=== PATIENT | female | born 1950 | race Caucasian/White ===

== ENCOUNTER → 2023-05-25 12:23 | Outpatient (REF) | payer MEDICARE, SELFPAY ==
[2023-05-25 16:36] LABS: Folate > 20.0 ng/ml (2.76-20); Vitamin B12 818 pg/ml (239-931)
== END ==
LOC: HWLAB 12:23
PROVIDERS: ATTENDING PHYSICIAN Nurse Practitioner Adult Health
DX: R71.8 Other abnormality of red blood cells (principal); Z79.899 Other long term (current) drug therapy
CPT/HCPCS: 36415; 82607; 82746

== ENCOUNTER 2023-05-26 18:37 | Inpatient (IN) | payer MEDICARE, SELFPAY ==
[2023-05-26 15:15] VITALS: BMI 28.1
[2023-05-26 15:16] VITALS: BP 149/81
[2023-05-26 15:23] VITALS: BP 149/81
[2023-05-26 15:39] LABS: % Basophils 0.4 % (0-2); % Eosinophils 0.9 % (0-6); % Immature Granulocytes 1.6 % (0-0.5); % Lymphocytes 21.2 % (20.5-51.1); % Monocytes 6.9 % (1.7-9.3); Absolute Eosinophils 0.1 10^3/uL (0-0.7); Absolute Immature Granulocytes 0.1 10^3/uL (0-0.05); Absolute Lymphocytes 1.5 10^3/uL (1.2-3.4); Absolute Monocytes 0.5 10^3/uL (0.1-0.6); Absolute Neutrophils 4.8 10^3/uL (1.4-6.5); Mean Corp Hgb Conc. 34.2 g/dL (33.0-37.0); Mean Corpuscular Volume 96.4 fL (81.0-99.0); Mean Platelet Volume 9.9 fL (7.4-10.4); Nucleated Red Blood Cells % 0 %; Platelet Count 229 10^3/uL (130-400); Red Blood Cell Count 3.94 10^6/uL (4.20-5.40); Red Cell Dist. Width 12.1 % (11.5-14.5)
[2023-05-26 15:55] LABS: ALT (SGPT) 28 U/L (0-35); AST (SGOT) 33 U/L (14-36); Albumin 4.5 g/dl (3.5-5.0); Alkaline Phosphatase 93 U/L (38-126); Blood Urea Nitrogen 25 mg/dl (7-17); Calcium 9.6 mg/dl (8.4-10.2); Carbon Dioxide 27 mmol/L (22-30); Chloride 108 mmol/L (98-107); Estimated Creatinine Clearance 68 ml/min; Glucose 114 mg/dl (70-99); Potassium 4.1 mmol/L (3.5-5.1); Sodium 138 mmol/L (135-145); Total Bilirubin 0.7 mg/dl (0.2-1.3); Total Protein 6.7 g/dl (6.3-8.2); eGFR > 60.00
[2023-05-26 16:00] VITALS: BP 156/71
--- NOTE | 2023-05-26 16:14 | ED.MUSCINJ ---
HPI-Injury
General
Chief Complaint: Fall
Source: patient and spouse
Exam Limitations: none
Time Seen by Provider: 05/26/23 15:36
Nursing documentation reviewed up to this point in time: agreed with
Travel History
Have you had any contact with someone who has COVID-19?: No
Do you have any symptoms of coronavirus? Fever > 100 degrees, chills, cough, shortness of breath, sore throat, loss of taste or smell, muscle aches, or headache?: No
History of Present Illness-Injury
Initial Injury comments:
73-year-old female with history of CAD HTN, HLD stepped out of her front door to get her mail, missed 1 step fell on the concrete onto her left side. She was unable to get up due to left hip pain. EMS was called and she presents via EMS with a
shortened and externally rotated left lower extremity, hip pain and pain in the lateral aspect of her left foot. She is not anticoagulated. She denies hitting her head or any other injury. She states laying still her pain is 3/10.
Past History
Past History
ED Past Medical History: CAD, HTN and Hypercholesterolemia
ED Past Surgical History: Gynecological (Hysterectomy, oophorectomy)
Social History
Tobacco: Non-smoker
Alcohol: None
Drug: None
Personal:
Living: with family
Review of Systems
Review of Systems
Allergies reviewed?: Yes
All Other Systems: ROS reviewed and negative except as documented in HPI and ROS
Constitutional: Denies fever
EENT: Reports other (Left eye deviates laterally)
Respiratory: Denies trouble breathing
Cardiac: Denies chest pain
ABD/GI: Denies abdominal pain or nausea
: Denies dysuria or difficulty voiding
Musculoskeletal: Reports other (Pain left hip and left foot)
Skin: Reports no symptoms
Neurological: Reports no symptoms
Phy Exam
Physical Exam
Physical Exam:
GENERAL: No acute distress. A&Ox3.
CONSTITUTIONAL: Afebrile.
EYES: PERRL, conjunctivae normal, lateral left eye deviation
Neck: Supple
ENMT: moist mucus membranes, Pharynx nl
RESPIRATORY: Regular respirations, nonlabored, lungs clear.
CARDIOVASCULAR: Regular rate and rhythm, no murmurs, no rubs.
GI: Soft, nontender, normal BS
MUSCULOSKELETAL: Left hip pain, left leg shortened and externally rotated. Mild tenderness lateral aspect left foot. Moves toes well. Well perfused.
SKIN: Warm, dry, pink
PSYCH: Normal mood and affect. Well kept, interactive and appropriate
NEUROLOGIC: Awake, alert and oriented. No focal neurological deficits
Injury Course
Orders/Labs/Results
Orders:
Orders
05/26/23 Dinner
Regular
At Your Request: Full Participation
05/26/23 15:19
CR Foot - Left Min 3 Views Urgent
Comment:
Reason For Exam: fall
CR Hip - LT w/wo Pel 2-3 Vw* Urgent
Comment:
Reason For Exam: fall
Include a pelvis x-ray?: Yes
05/26/23 15:21
Complete Blood Count/With Diff Urgent
Comprehensive Metabolic Panel Urgent
05/26/23 16:13
HYDROmorphone [Dilaudid] 1 mg IV NOW STA
Ondansetron Injectable [Zofran] 4 mg IV NOW STA
05/26/23 17:17
ORTHOPEDIC CONSULT Urgent
Consulting Provider: Virginia Carpio
Was physician already notified: Yes
Reason for consult: L hip fracture.
05/26/23 17:28
Electrocardiogram (*1) Urgent
Reason for Study: PreOp
EKG- Treatment ONCE
05/26/23 17:58
Admit/Transfer Patient As Directed
Co-Sign Provider:
Level of Care: Inpatient admission
Assign to:: Medical/Surgical
Physician / Group: Quang Pike
Diagnosis: Left hip fracture
Reason for Hospitalization: Left hip fracture
Expected length of stay greater than two midnights?: Yes
ELOS- Estimated Length of Stay in days: 3
I certify the patient meets the requirements for IP care: Yes
05/26/23 18:01
Code Status As Directed
Resuscitation Status: Full Code
05/26/23 19:35
Atorvastatin [Lipitor] 10 mg PO QPM
Magnesium Hydroxide [Milk of Magnesia] 30 ml PO DAILYPRN PRN
Morphine Sulfate 1 mg IV Q2HPRN PRN
Morphine Sulfate 2 mg IV Q2HPRN PRN
Oxycodone [Roxicodone] 5 mg PO Q4HPRN PRN
Tamsulosin [Flomax] 0.4 mg PO DAILYPRN PRN
05/26/23 19:35
Activity As Directed
Activity Level: Bedrest
Bladder Scan As Directed
Follow Bladder Retention/Intermittent Cath Algorithm?: Yes
PRN if no void in __ hours: 6
Comment: if not voiding 6 hrs upon arrival to floor, bladder scan & follow algorithm
Intake/ Output As Directed
Frequency: Per unit guidelines
Pneumatic Compression Sleeves As Directed
Type: Knee high
Straight Cath As Directed
Frequency: Per Retention Algorithm
Additional Instructions: straight cath as needed per acute urinary retention algorithm for 24 hrs
Additional Instructions: for bladder scan greater than 400 mL
Vital Signs As Directed
Frequency: Per unit guidelines
DX Deep Vein Thrombosis Video Routine
05/26/23 20:00
Acetaminophen [Tylenol] 650 mg PO Q4HWA
Calcium Carbonate/Vitamin D3 [Oscal 500 + D] 500 mg PO BID
Docusate Sodium [Colace] 100 mg PO BID
Lisinopril [Zestril] 20 mg PO BID
Metoprolol Xl [Toprol Xl] 100 mg PO BID
Sennosides [Senokot] 17.2 mg PO BID
05/27/23 Breakfast
NPO
Allow oral meds: Yes
Allow clear liquids: 4hrs prior to procedure
Comment: may have unrestricted clear liquid up to 4 hrs prior to scheduled procedure
05/27/23 08:00
Cholecalciferol (Vitamin D3) [VITAMIN D3 (cholecalciferol)] 25 mcg PO DAILY
ISOSORBIDE MONOnitrate ER [Imdur (Extended Release)] 30 mg PO DAILY
Multivitamin [Theragran] 1 tablet PO DAILY
Abnormal Lab Results
05/26/23
15:21
RBC 3.94 L 10^6/uL
(4.20-5.40)
MCH 33.0 H pg
(27.0-31.0)
Abs Immat Gran (auto) 0.1 H 10^3/uL
(0-0.05)
Immature Gran % 1.6 H %
(0-0.5)
Chloride 108 H mmol/L
(98-107)
BUN 25 H mg/dl
(7-17)
Glucose 114 H mg/dl
(70-99)
05/26/23 15:21
05/26/23 15:21
MDM/Problems Addressed
Differential Diagnosis Includes:
Fracture left hip, dislocated left hip, fracture left foot
MDM/Problems Addressed:
73-year-old female with history of CAD HTN, HLD stepped out of her front door to get her mail, missed 1 step fell on the concrete onto her left side. She was unable to get up due to left hip pain. EMS was called and she presents via EMS with a
shortened and externally rotated left lower extremity, hip pain and pain in the lateral aspect of her left foot. She is not anticoagulated. She denies hitting her head or any other injury. She states laying still her pain is 10.
05/26/2023 1720 PM
CBC with no clinically significant abnormality
CMP: BUN 25, otherwise normal
Left hip x-ray radiology report read: IMPRESSION:
Nondisplaced intertrochanteric left hip fracture.
Mild bilateral hip osteoarthritis, right greater than left.
Moderate fecal material throughout the colon.
Left foot xray: neg for fracture
Hospitalist and Orthopedic Dr. Carpio notified of admission
Orthopedic consult in
*Critical Care Note
Total Time (30-74mins, 75-104mins- exclusive of procedures): Not Applicable
ED Attending Note
-
Portions of this chart may have been created with voice recognition software.� Occasional wrong word or��sound alike� substitutions may have occurred due to the inherent limitations of voice recognition software.
Discharge Plan
Departure
Patient Disposition: Admit
Date of Disposition: 05/26/23
Time of Disposition: 17:18
Admit to: Med/Surg
Presentation/result/management discussed w/ accepting MD/DO: Hospitalist
Condition: Fair
Discharge Problem:
Closed fracture of left hip, Fall from slip, trip, or stumble
Interventions
Interventions:
*Risk Screen - Suicide Last Done: 05/26/23 15:17
*General Assessment Last Done: 05/26/23 15:16
*Neglect/Abuse Screening Last Done: 05/26/23 15:17
ED- Fall Risk Assessment Last Done: 05/26/23 15:18
*ED COVID-19 Vaccine History Last Done: 05/26/23 15:16
*Nursing Disposition Last Done: 05/26/23 19:45
ED-Musculoskeletal Assessment Last Done: 05/26/23 15:18
ED- Neurological Assessment Last Done: 05/26/23 15:17
Discharge Date and Time
Discharge Date/Time: 05/26/23 19:46
[2023-05-26] MEDS: DILAUDID 1 MG IV (16:19)
[2023-05-26] MEDS: ZOFRAN 4 MG IV (16:19)
--- NOTE | 2023-05-26 17:58 | HPS.HSE ---
Family Physician
-
Family Physician: Marlen Lujan
Chief Complaint
-
Mechanical fall, left hip pain
History of Present Illness
Patient is a 73-year-old female with past medical history of coronary disease, essential hypertension, hyperlipidemia, history of venous thrombosis came to ER after having mechanical fall. Patient was apparently getting out of house and ended up
forgetting a step and fell on the left side. Patient had small abrasion on right hand. Significant pain and ambulatory dysfunction afterward causing patient to present to ER. In ER patient comfortable after getting pain medication. Hip x-ray
showing left hip trochanteric fracture. Patient denies of having any associated complaints of dizziness/palpitation/diaphoresis. Patient have history of coronary artery disease and follows up with Dr. Bety Troy in [place]. Patient have
history of heart catheterization 2013 showing what patient reports to be noncritical coronary disease. Patient is on Imdur/statin for that. Patient also have history of episodic tachycardia and have Holter monitoring in past, not currently taking
metoprolol for rate control.
Patient denies of any other GI or complaints
Medical History
Past Medical History
Past Medical History: Reports Other
Additional Past Medical History:
coronary disease, essential hypertension, hyperlipidemia, history of venous thrombosis
Past Surgical History: Reports Other
Social History
Tobacco: Non-smoker
Alcohol: Occasional
Drug: None
Personal:
Living: With Family
Family History
Family History: Not pertinent
Allergies / Home Medications
Allergies reflects when Allergies were last updated in [employer].
Home Medications with original date entered in [employer]
Allergy/Medication List:
Allergies
Allergy/AdvReac Type Severity Reaction Status Date / Time
Penicillins Allergy Unknown Verified 06/12/22 14:25
Sulfa (Sulfonamide Allergy Unknown Verified 06/12/22 14:25
Antibiotics)
Home Medications
atorvastatin 10 mg tablet 10 mg PO QPM 05/26/23
calcium citrate 315 mg calcium-vitamin D3 6.25 mcg (250 unit) tablet 1 tab PO BID 05/26/23
cholecalciferol (vitamin D3) 25 mcg (1,000 unit) tablet 25 mcg PO DAILY 05/26/23
isosorbide mononitrate 30 mg tablet,extended release 24 hr 30 mg PO DAILY 05/26/23
lisinopril 20 mg tablet 20 mg PO BID 05/26/23
metoprolol succinate 100 mg tablet,extended release 24 hr 100 mg PO BID 05/26/23
therapeutic multivitamin 1 tab PO DAILY 05/26/23
Review of Systems
-
A 12 point ROS was completed and negative except as noted: Yes
Physical Exam
Vital Signs
Vital Signs
Temp Pulse Resp BP Pulse Ox
97.8 F 76 20 156/71 97
05/26/23 15:16 05/26/23 16:15 05/26/23 16:15 05/26/23 16:00 05/26/23 16:15
Physical Exam
General: No Apparent Distress
HEENT: Atraumatic; No Oxygen
Respiratory: Clear
Cardiac: S1/S2 and Regular Rhythm; No Murmur or Rub
GI: Soft, Non Tender, Non Distended and Normal Bowel Sounds; No Organomegaly
Rectal: Deferred by Provider
Musculoskeletal: No Clubbing, No Cyanosis and No Edema
Skin: No Rash
Neuro: Awake, Alert and Nonfocal/grossly intact
Laboratory Results
-
05/26/23 15:21
05/26/23 15:21
Laboratory Results
Total Bilirubin 0.7 mg/dl (0.2-1.3) 05/26/23 15:21
AST 33 U/L (14-36) 05/26/23 15:21
ALT 28 U/L (0-35) 05/26/23 15:21
Alkaline Phosphatase 93 U/L (38-126) 05/26/23 15:21
Data Reviewed
-
Diagnostic Radiology: Image Personally Visualized and interpreted, Discussed with Patient and Discussed with Family
Lab Data: Labs Reviewed by me, Discussed with Patient and Discussed with Family
Impression/Plan
-
1. Left hip intertrochanteric fracture
Mechanical fall
-Patient had mechanical fall causing left hip injury
-X-ray showing nondisplaced intratrochanteric hip fracture
-Patient got IV morphine in ER for pain control,
-Admit to MedSur floor
- Orthopedic surgery consulted
-Patient to be n.p.o. past midnight for surgery tomorrow
2. CAD
-[facility] in 2013 showing nonobstructive coronary artery disease -verbal report per patient
-On Imdur daily, continue with hold parameter
-Primary hand violin maker in [place] Dr. Bety Troy
3. Essential hypertension
-Continue lisinopril and Toprol-XL with holding parameters
4. Tachyarrhythmia
-Reported episodic tachyarrhythmia, patient on Toprol-XL BID
5. HLD
- maintain on statin
DVT PPX - scd
Full code
RCRI 0 with 30 day risk of ,NC or cardiac arrest is 3.9%
Patient benefit outweighs the risk and risk acceptable for surgery
Total time spent : 77 mins
I personally saw and examined the patient.
I have reviewed all diagnostic interpretations and treatment plans as written.
Time includes patient management by me, time spent at the patients bedside, time to review lab and imaging results, discussing patient care, documentation in the medical record, and time spent with the family or caregiver and discussing care plan
with RN/Consultants.
[2023-05-26 18:50] VITALS: BP 165/81; BMI 27.9
[2023-05-26 19:50] VITALS: BP 165/81
[2023-05-26] MEDS: LIPITOR 10 MG PO (20:24)
[2023-05-26] MEDS: COLACE 100 MG PO (20:25)
[2023-05-26] MEDS: TYLENOL 650 MG PO (20:25)
[2023-05-26] MEDS: SENOKOT 17.1999999999999993 MG PO (20:25)
[2023-05-26] MEDS: OSCAL 500 + D 500 MG PO (20:25)
[2023-05-26] MEDS: TOPROL XL 100 MG PO (20:26)
[2023-05-26] MEDS: ZESTRIL 20 MG PO (20:27)
[2023-05-26] MEDS: ROXICODONE 5 MG PO (20:37)
[2023-05-26 23:54] VITALS: BP 119/51
[2023-05-27] VITALS (13 sets, daily range): BP systolic 83–144; BP diastolic 40–71
[2023-05-27] MEDS: TYLENOL PO ×2 (00:49→21:39)
[2023-05-27] MEDS: TYLENOL 650 MG PO ×5 (02:51→23:36)
[2023-05-27] MEDS: ROXICODONE 5 MG PO (02:51)
--- NOTE | 2023-05-27 07:41 | W.PN.UPDATE ---
Update Note
Progress Note Update
Full orthopedic consult dictated:
Dx: Nondisplaced left hip intertrochanteric fracture
Plan: Left hip gamma nail later this afternoon with Dr. Carpio. Surgery consent and blood consent signed by patient. Surgical location marked and Ancef on-call to the operating room.
[2023-05-27] MEDS: SENOKOT 17.1999999999999993 MG PO ×2 (07:53→21:27)
[2023-05-27] MEDS: COLACE 100 MG PO ×2 (07:53→21:27)
[2023-05-27] MEDS: IMDUR (EXTENDED RELEASE) 30 MG PO (07:53)
[2023-05-27] MEDS: ZESTRIL 20 MG PO ×2 (07:54→21:39)
[2023-05-27] MEDS: OSCAL 500 + D 500 MG PO ×2 (07:54→21:36)
[2023-05-27] MEDS: VITAMIN D3 (cholecalciferol) 25 MCG PO (07:55)
[2023-05-27] MEDS: THERAGRAN 1 TABLET PO (07:55)
[2023-05-27] MEDS: TOPROL XL 100 MG PO ×2 (07:55→21:37)
--- NOTE | 2023-05-27 10:52 | W.PN.HOSP.TC ---
Today's Communication/Plan
-
foir OR today
Assessment / Plan
Assessment / Plan
1.� Left hip intertrochanteric fracture
�� � Mechanical fall
-Patient had mechanical fall causing left hip injury
-X-ray showing nondisplaced intratrochanteric hip fracture
-Patient got IV morphine in ER for pain control, continue
- Orthopedic surgery consulted
-Patient going to OR today
2. CAD
-[facility] in 2013 showing nonobstructive coronary artery disease -verbal report per patient
-On Imdur daily, continue with hold parameter
-Primary gynecologist in [place] Dr. Bety Troy
3.� Essential hypertension
-Continue lisinopril and Toprol-XL with holding parameters
4.� Tachyarrhythmia
-Reported episodic tachyarrhythmia, patient on Toprol-XL BID
5. HLD
- maintain on statin
DVT PPX - scd
Full code
RCRI 0 with 30 day risk of ,VT or cardiac arrest is 3.9%
Patient benefit outweighs the risk and risk acceptable for surgery
Anticipated Discharge: 24 - 48 hours
Subjective/Interval History
-
Date of Service: May 27, 2023
no issues overnight
Objective Data
-
Vital Signs:
Vital Signs
Temp Pulse Resp BP Pulse Ox
98.8 F 72 18 144/69 93
05/27/23 07:55 05/27/23 07:55 05/27/23 07:55 05/27/23 07:55 05/27/23 07:55
I&O
05/26/23 05/27/23 05/28/23
06:59 06:59 06:59
Intake Total 0 / 0
Output Total 600 / 600
Balance -600 / -600
Review of Systems
-
Respiratory: Reports No Symptoms
Cardiac: Reports No Symptoms
Abdomen/GI: Reports No Symptoms
Physical Exam
-
General: Comfortable
HEENT: Negative Oxygen
Respiratory: Clear to Auscultation
Cardiac: Regular Rhythm and S1/S2; Negative Murmur or Rub
GI: Soft, Nontender and Nondistended
Musculoskeletal: No Edema
Skin: Other (left lateral hip echymosis)
Neuro: Awake, Alert, Oriented, No Motor Deficits and Nonfocal/Grossly Intact
Psych: Calm
--- NOTE | 2023-05-27 11:49 | CM ---
Chart reviewed. Spoke with pt at bedside
Pt fractured hip at home - prob sx intervention later today
Prior to hospitalization pt independent-shops, preparing meals
Lives with in [place] style home
Denies DME, past snf/HH
PCP -Leslie EDWARD
Pharm - [facility]
CM will follow for needs post-op - pending PT/OT evals
Plan - anticipate snf/hh at d/c
--- NOTE | 2023-05-27 14:57 | PN.CDI ---
CDI
- -
CDI:
Physician Documentation Request
Admit Date: 05/26/23 18:37
Dear Doctor Shahzad,
Please review the following and provide your response in the progress notes.
Clinical Indicators:
Bone Density, 05/26/2022
#10 year fracture risk:
#...Major osteoporotic fracture
#...16%
#...Hip fracture
#...5.2%
#IMPRESSION:
#OSTEOPENIA. There has been a statistically significant decrease in bone mineral density in the proximal femur since the prior examination.
ED, 05/26
#ED Past Surgical History: Gynecological (Hysterectomy, oophorectomy)
#Home Meds:
#cholecalciferol (vitamin D3) 25 mcg (1,000 unit) Tablet 25 mcg PO DAILY
#calcium citrate-vitamin D3 315 mg-6.25 mcg (250 unit) Tablet 1 tab PO BID
#Closed fracture of left hip, Fall from slip, trip, or stumble
Please clarify the following regarding the etiology of the left hip fracture:
Multifactorial, traumatic, age related osteoporosis
Traumatic fracture only
Other
Type Fracture
Age-related With current pathological fx
Drug induced (specify drug) without current pathological fx
Idiopathic
Osteoporosis of disuse
Post traumatic
Post oophorectomy osteoporosis
Use of terms such as suspected, likely, concern for, or probable (associated with a specific diagnosis that is being evaluated, monitored, or treated as if it exists) are acceptable and can be coded in the inpatient setting, when documented at the
time of discharge.
Thank you,
Kaye Borrero RN BSN CCDS
CDI Specialist
please contact via tiger text
Please use your independent medical judgment in providing your response.
--- NOTE | 2023-05-27 15:29 | PTCARENOTE ---
Patient to OR for procedure
--- NOTE | 2023-05-27 18:03 | W.PN.UPDATE ---
Update Note
Progress Note Update
Post-op Update Note:
Patient seen in PACU. Waking up from anesthesia, moving BL feet and toes. DP 2+ BL. She is s/p Left hip intramedullary nailing. DVT ppx with SCDs and ASA 325 bid x 4 weeks. She may WBAT. PT/OT. Diet ok. Will continue to follow.
Virginia Carpio DO
Orthopedic Surgery
--- NOTE | 2023-05-27 19:40 | SUR.PHASEI ---
initially sedate in pacu with lower BP - when more awake , vss, color pink, awake and alert, feels disoriented with ' loss of time' from the OR, currently oriented with minimal discomfort. dressings dry, keep sequential stocking on instead of
venous foot pumps - ice to left leg. note wandering left eye, patient says 'chronic' and has good vision. Iv fluids stopped report to 2 south and discharged - keeping O2 nasal on. Encourage deep breathing - sats good with O2.
[2023-05-27] MEDS: ASPIRIN 325 MG PO (21:28)
--- NOTE | 2023-05-27 21:29 | OR.RPT ---
Operative Report
Operative Report
Orthopedic Surgery Operative Report
Date of Surgery: 05/27/23
PREOPERATIVE DIAGNOSES:
1. Left intertrochanteric femoral neck fracture
POSTOPERATIVE DIAGNOSES:
1. Left intertrochanteric femoral neck fracture
PROCEDURE PERFORMED:
1. Left hip intramedullary nailing
SURGEON: Virginia Carpio D.O.
TERMINAL OPERATOR: None
ANESTHESIA: General
COMPLICATIONS: None
ESTIMATED BLOOD LOSS: 50 cc
DRAINS: None
SPECIMEN: None
IMPLANTS:
[employer] [place] [employer]-
[id number] Left Gamma Nail
10.5x95mm lag screw
5.0x55mm screw
INDICATION FOR SURGERY: Patient is a 73-year-old female who recently took a fall. Imaging in the hospital demonstrated a left intertrochanteric femoral neck fracture. A decision was made to proceed with left femur intramedullary nailing. All
operative and nonoperative treatment options were discussed with the patient and a decision was made to proceed with surgery. The risks, benefits, alternatives, and indications were discussed with the patient in detail. The risks include, but are
not limited to bleeding requiring transfusion, infection, need for reoperation, nerve or blood vessel damage, anesthetic risks, need for further surgery, continued pain, blood clots in the legs, heart attack, stroke, , neurovascular injury,
malunion, nonunion, continued pain, numbness, weakness. The patient understands the risks and elected to proceed. Informed consent was obtained preoperatively.
PROCEDURE IN DETAIL: The patient was identified in the preoperative holding area. The surgical site was appropriately marked. The patient was then brought to the operating room. General anesthesia was achieved. The patient was given routine
preoperative intravenous antibiotics. The patient was then appropriately positioned on the fracture table. X-rays were obtained to ensure no displacement of the intertrochanteric fracture had occurred. The patient was prepped and draped in the
usual sterile manner. A preoperative surgical time-out was taken and the procedure was initiated.
The greater trochanter was marked using fluoroscopy. An incision was made along the lateral hip proximal to the greater trochanter. A guidewire was then advanced under fluoroscopic guidance to gain an appropriate entry point at the greater
trochanter. Once the guidewire was placed, an opening reamer was used to gain entry into the femur. The guidewire was removed and a ball-tipped guidewire was inserted into the femur. The position of the guidewire was confirmed both with tactile
feel to ensure that it was within the femur and with fluoroscopy. Appropriate position of the guidewire in the distal femur was confirmed on fluoroscopy. A measurement was taken for an appropriately sized nail under fluoroscopic guidance. The
femur was then sequentially reamed. Next, a size 10 x 420 nail was inserted into the femur under fluoroscopic guidance. The ball-tipped guide wire was removed. Attention was then turned towards lag screw placement. The lag screw attachment was
placed on the jig. An incision was made at the lateral thigh to advance the lag screw attachment to the lateral femur. The lag screw guidewire was then introduced into the femoral neck under fluoroscopic guidance. Once appropriate position of the
guidewire was confirmed, a measurement was taken. The femoral neck was then drilled over top the guidewire and the appropriately sized lag screw was placed under fluoroscopic guidance. Compression was performed through the lag screw. The
set-screw of the nail was placed to lock the nail to the lag screw. The lag screw attachment and guide wire were removed. Attention was then turned towards placement of the distal interlocking screws. A distal interlocking screw was placed using
perfect-circles fluoroscopy technique. The jig was then removed and all wounds were copiously irrigated. Final x-rays were obtained. The wounds were closed in layered fashion using vicryl suture. Kevon were applied at the skin. Dressings were
applied to all incision sites. Patient tolerated the procedure well with no immediate complications. All counts were correct at the end of the surgery.
Virginia Carpio D.O.
Orthopedic Surgery
[2023-05-27] MEDS: LIPITOR PO (21:37)
[2023-05-27] MEDS: ANCEF 5 IV (23:36)
[2023-05-28] VITALS (9 sets, daily range): BP systolic 84–132; BP diastolic 45–60; PULSE 73; O2SAT 91–92
[2023-05-28] MEDS: TYLENOL 650 MG PO ×4 (04:20→21:15)
[2023-05-28 06:10] LABS: Hematocrit 31.5 % (37.0-47.0); Hemoglobin 10.5 g/dL (12.0-16.0); Mean Corp Hgb Conc. 33.3 g/dL (33.0-37.0); Mean Corpuscular Hgb 32.4 pg (27.0-31.0); Mean Corpuscular Volume 97.2 fL (81.0-99.0); Mean Platelet Volume 10.3 fL (7.4-10.4); Platelet Count 146 10^3/uL (130-400); Red Blood Cell Count 3.24 10^6/uL (4.20-5.40); Red Cell Dist. Width 12.5 % (11.5-14.5); White Blood Cell Count 5.6 10^3/uL (4.8-10.8)
[2023-05-28 06:24] LABS: Blood Urea Nitrogen 31 mg/dl (7-17); Calcium 8.6 mg/dl (8.4-10.2); Carbon Dioxide 25 mmol/L (22-30); Chloride 103 mmol/L (98-107); Estimated Creatinine Clearance 74 ml/min; Glucose 140 mg/dl (70-99); Potassium 4.1 mmol/L (3.5-5.1); Sodium 137 mmol/L (135-145); eGFR > 60.00
[2023-05-28] MEDS: TOPROL XL 100 MG PO ×2 (07:50→21:18)
[2023-05-28] MEDS: OSCAL 500 + D 500 MG PO ×2 (07:51→21:14)
[2023-05-28] MEDS: IMDUR (EXTENDED RELEASE) 30 MG PO (07:51)
[2023-05-28] MEDS: VITAMIN D3 (cholecalciferol) 25 MCG PO (07:51)
[2023-05-28] MEDS: COLACE 100 MG PO ×2 (07:52→21:14)
[2023-05-28] MEDS: ASPIRIN 325 MG PO ×2 (07:52→21:14)
[2023-05-28] MEDS: SENOKOT 17.1999999999999993 MG PO ×2 (07:52→21:14)
[2023-05-28] MEDS: THERAGRAN 1 TABLET PO (07:52)
[2023-05-28] MEDS: ZESTRIL 20 MG PO ×2 (07:53→21:18)
[2023-05-28] MEDS: ANCEF 5 IV (07:53)
[2023-05-28] MEDS: ROXICODONE 5 MG PO (08:57)
--- NOTE | 2023-05-28 09:12 | W.PN.ORTHO ---
Documented by User: Marcellus Overton PA-C 05/28/23 09:16
Today's Communication / Plan
-
Appreciate hospitalist in the medical management of this patient
Appreciate CM assistance with disposition, likely SNF
Continue WBAT LLE on walker/assistance
PT/OT
ASA 325mg BID due to Hx of unprovoked DVT
Dressing to remain 7-10 days
[place] out 2 weeks (SNF of office)
If [facility]o out at SNF outpatient Ortho in 4 weeks
Assessment
.
Distal Motor Intact: Yes
Dressing:
Clean, dry and intact. Aquacel dressing in place x 3 Left thigh
Assessment:
POD#1 Left hip Gamma nail
Overall doing/feeing well
Calf soft, nontender
Plan
.
Surgery / Date: Left Hip Gamma nail Jun 12 ([facility])
DVT Prophylaxis: Aspirin (BID)
Activity:
Out of bed. WBAT LLE on walker
PT/OT
Discharge Plan: SNF
Subjective
.
.:
Patient resting comfortably. no significant pain LLE
Vital Signs and Labs
.
Vital Signs and Labs:
Lab Results
05/28/23 05:00
05/28/23 05:00
Temp Pulse Resp BP Pulse Ox
98.4 F 78 17 137/61 92
05/28/23 07:30 05/28/23 07:53 05/28/23 07:30 05/28/23 07:53 05/28/23 07:30

Documented by User: Virginia Carpio DO 05/28/23 10:55
Today's Communication / Plan
-
Appreciate hospitalist in the medical management of this patient
Appreciate CM assistance with disposition, likely SNF
Continue WBAT LLE on walker/assistance
PT/OT
ASA 325mg BID due to Hx of unprovoked DVT
Dressing to remain 7-10 days
[place] out 2 weeks
[2023-05-28] MEDS: NSS 250 IV (11:30)
--- NOTE | 2023-05-28 12:23 | W.PN.HOSP.TC ---
Addendum entered and electronically signed by Quang Pike MD 05/28/23 15:14:
Adjust diagnosis:
Left hip intertochanteric fracture - multifactorial from mechanical trauma and osteoporosis
Acute blood loss anemia from surgical blood loss
Original Note:
Today's Communication/Plan
-
IVF bolus
will hold HTN meds if repeat orthostasis episode occurs
pt/ot and rehab placement
Assessment / Plan
Assessment / Plan
1.� Left hip intertrochanteric fracture
�� � Mechanical fall
-Patient had mechanical fall causing left hip injury
-X-ray showing nondisplaced intratrochanteric hip fracture
-s/p left intramedullary nailing by ortho service.
-PT/OT will need rehab placement
2. CAD
-[facility] in 2013 showing nonobstructive coronary artery disease -verbal report per patient
-On Imdur daily, continue with hold parameter
-Primary inside sales agent in [place] Dr. Bety Troy
3. Orthostasis
- episode while working with PT, SBP dropped to 70s
- providing IVF bolus of 250ml
- if repeat episode happens, will need to hold HTN meds
4.� Essential hypertension
-Continue lisinopril and Toprol-XL with holding parameters
5.� Tachyarrhythmia
-Reported episodic tachyarrhythmia, patient on Toprol-XL BID
5. HLD
- maintain on statin
DVT PPX - scd
Full code
Anticipated Discharge: Within 24 hours
Subjective/Interval History
-
Date of Service: May 28, 2023
denies excessive pain
had episode of orthostasis with PT
Objective Data
-
Labs:
Laboratory Results
05/28/23
05:00
WBC 5.6
Hgb 10.5 L
Hct 31.5 L
Plt Count 146 D
Sodium 137
Potassium 4.1
Chloride 103
Carbon Dioxide 25
BUN 31 H
Creatinine 0.7
Glucose 140 H
Calcium 8.6
Vital Signs:
Vital Signs
Temp Pulse Resp BP Pulse Ox
98.4 F 78 17 137/61 92
05/28/23 07:30 05/28/23 07:53 05/28/23 07:30 05/28/23 07:53 05/28/23 07:30
I&O
05/27/23 05/28/23 05/29/23
06:59 06:59 06:59
Intake Total 0 / 0 250 / 250 120 / 120
Output Total 600 / 600 350 / 350
Balance -600 / -600 250 / 250 -230 / -230
Review of Systems
-
Respiratory: Reports No Symptoms
Cardiac: Reports No Symptoms
Abdomen/GI: Reports No Symptoms
Physical Exam
-
General: Comfortable
HEENT: Oxygen
Respiratory: Clear to Auscultation
Cardiac: Regular Rhythm and S1/S2; Negative Murmur or Rub
Musculoskeletal: No Edema
Skin: Other (left lateral hip dressing in place )
Neuro: Awake, Alert, Oriented, No Motor Deficits and Nonfocal/Grossly Intact
Psych: Calm
--- NOTE | 2023-05-28 14:51 | PN.CDI ---
CDI
- -
CDI:
Physician Documentation Request
Admit Date: 05/26/23 18:37
Dear Doctor Shahzad,
Please review the following and provide your response in the progress notes.
Clinical Indicators:
2 POD#1 Left hip Gamma nail
#ESTIMATED BLOOD LOSS: 50 cc
Laboratory Tests
05/26/23 05/28/23
15:21 05:00
Hgb 13.0 10.5 L
Please clarify which of the following is the most likely condition/diagnosis evaluated, monitored and/or treated?
Acute blood loss anemia
Abnormal lab value, clinically insignificant
Other
Use of terms such as suspected, likely, concern for, or probable (associated with a specific diagnosis that is being evaluated, monitored, or treated as if it exists) are acceptable and can be coded in the inpatient setting, when documented at the
time of discharge.
Thank you,
Kaye Borrero RN BSN CCDS
CDI Specialist
please contact via tiger text
Please use your independent medical judgment in providing your response.
[2023-05-28] MEDS: TYLENOL PO (15:08)
[2023-05-28] MEDS: LIPITOR 10 MG PO (17:01)
[2023-05-29] MEDS: TYLENOL PO ×3 (00:09→16:32)
[2023-05-29] MEDS: TYLENOL 650 MG PO ×3 (03:45→20:07)
[2023-05-29 06:09] LABS: Hematocrit 30.7 % (37.0-47.0); Hemoglobin 10.3 g/dL (12.0-16.0); Mean Corp Hgb Conc. 33.6 g/dL (33.0-37.0); Mean Corpuscular Hgb 32.8 pg (27.0-31.0); Mean Corpuscular Volume 97.8 fL (81.0-99.0); Mean Platelet Volume 10.2 fL (7.4-10.4); Platelet Count 149 10^3/uL (130-400); Red Blood Cell Count 3.14 10^6/uL (4.20-5.40); Red Cell Dist. Width 12.9 % (11.5-14.5); White Blood Cell Count 6.6 10^3/uL (4.8-10.8)
[2023-05-29 06:48] LABS: Blood Urea Nitrogen 47 mg/dl (7-17); Carbon Dioxide 25 mmol/L (22-30); Chloride 106 mmol/L (98-107); Estimated Creatinine Clearance 65 ml/min; Glucose 113 mg/dl (70-99); Potassium 4.1 mmol/L (3.5-5.1); Sodium 141 mmol/L (135-145); eGFR > 60.00
[2023-05-29 07:50] VITALS: BP 121/60
[2023-05-29] MEDS: ASPIRIN 325 MG PO ×2 (09:07→20:08)
[2023-05-29] MEDS: SENOKOT 17.1999999999999993 MG PO (09:07)
[2023-05-29] MEDS: ZESTRIL 20 MG PO ×2 (09:08→20:11)
[2023-05-29] MEDS: IMDUR (EXTENDED RELEASE) 30 MG PO (09:08)
[2023-05-29] MEDS: THERAGRAN 1 TABLET PO (09:08)
[2023-05-29] MEDS: COLACE 100 MG PO (09:09)
[2023-05-29] MEDS: OSCAL 500 + D 500 MG PO ×2 (09:09→20:07)
[2023-05-29] MEDS: TOPROL XL 100 MG PO ×2 (09:09→20:11)
[2023-05-29] MEDS: VITAMIN D3 (cholecalciferol) 25 MCG PO (09:10)
[2023-05-29 09:35] VITALS: BP 137/66; PULSE 71; O2SAT 96
--- NOTE | 2023-05-29 12:18 | W.PN.HOSP.TC ---
Today's Communication/Plan
-
discharge planning
Assessment / Plan
Assessment / Plan
1.� Left hip intertrochanteric fracture
�� � Mechanical fall
-Patient had mechanical fall causing left hip injury
-X-ray showing nondisplaced intratrochanteric hip fracture
-s/p left intramedullary nailing by ortho service.
-PT/OT will need rehab placement, CM working on it
2. CAD
-[facility] in 2013 showing nonobstructive coronary artery disease -verbal report per patient
-On Imdur daily, continue with hold parameter
-Primary dish up person in [place] Dr. Bety Troy
3. Orthostasis episode
- episode while working with PT, SBP dropped to 70s on 05/28
- provided IVF bolus of 250ml
- if repeat episode happens, will need to hold HTN meds
4.� Essential hypertension
-Continue lisinopril and Toprol-XL with holding parameters
5.� Tachyarrhythmia
-Reported episodic tachyarrhythmia, patient on Toprol-XL BID
6. HLD
- maintain on statin
7. Acute blood loss anemia from sx
- Hbg stable at 10-11 range, continue monitor
DVT PPX - scd
Full code
Anticipated Discharge: Today
Subjective/Interval History
-
Date of Service: May 29, 2023
Sitting comfortably in chair
No further reported episode of orthostasis/dizziness
Objective Data
-
Labs:
Laboratory Results
05/29/23
05:34
WBC 6.6
Hgb 10.3 L
Hct 30.7 L
Plt Count 149
Sodium 141
Potassium 4.1
Chloride 106
Carbon Dioxide 25
BUN 47 H
Creatinine 0.8
Glucose 113 H
Calcium 9.0
Vital Signs:
Vital Signs
Temp Pulse Resp BP Pulse Ox
98.3 F 72 17 137/66 96
05/29/23 07:50 05/29/23 09:09 05/29/23 07:50 05/29/23 09:09 05/29/23 09:10
I&O
05/28/23 05/29/23 05/30/23
06:59 06:59 06:59
Intake Total 250 / 250 600 / 600
Output Total 350 / 350
Balance 250 / 250 250 / 250
Review of Systems
-
Respiratory: Reports No Symptoms
Cardiac: Reports No Symptoms
Abdomen/GI: Reports No Symptoms
Physical Exam
-
General: Comfortable
HEENT: Oxygen
Respiratory: Clear to Auscultation
Cardiac: Regular Rhythm and S1/S2; Negative Murmur or Rub
Musculoskeletal: No Edema
Skin: Other (left lateral hip dressing in place , no bleeding)
Neuro: Awake, Alert, Oriented, No Motor Deficits and Nonfocal/Grossly Intact
Psych: Calm
--- NOTE | 2023-05-29 12:48 | CM ---
Spoke with pt about dc recommendations changing to SNF.
Pt is agreeable. SW provided pt and Medicare.gov resource to pick facilities to begin making referrals
--- NOTE | 2023-05-29 12:51 | PTCARENOTE ---
verified with Dr. Pike is is ok to shower with our assistance. bed sheets changed.
[2023-05-29 15:08] VITALS: BP 116/65; BP 117/67; BP 121/60; PULSE 72; PULSE 77; PULSE 86; O2SAT 97
[2023-05-29 15:19] VITALS: BP 116/65; BP 117/62; BP 121/60; PULSE 75; PULSE 77; PULSE 86
[2023-05-29] MEDS: LIPITOR 10 MG PO (16:30)
[2023-05-29] MEDS: COLACE PO (20:07)
[2023-05-29] MEDS: SENOKOT PO (20:07)
[2023-05-29 23:00] VITALS: BP 122/54
[2023-05-30] MEDS: TYLENOL PO ×5 (00:03→17:50)
[2023-05-30 06:25] LABS: Hematocrit 30.7 % (37.0-47.0); Hemoglobin 10.2 g/dL (12.0-16.0); Mean Corp Hgb Conc. 33.2 g/dL (33.0-37.0); Mean Corpuscular Hgb 32.5 pg (27.0-31.0); Mean Corpuscular Volume 97.8 fL (81.0-99.0); Mean Platelet Volume 10.4 fL (7.4-10.4); Platelet Count 164 10^3/uL (130-400); Red Blood Cell Count 3.14 10^6/uL (4.20-5.40); White Blood Cell Count 5.2 10^3/uL (4.8-10.8)
[2023-05-30 06:41] LABS: Blood Urea Nitrogen 34 mg/dl (7-17); Calcium 9.1 mg/dl (8.4-10.2); Carbon Dioxide 24 mmol/L (22-30); Chloride 107 mmol/L (98-107); Estimated Creatinine Clearance 74 ml/min; Glucose 104 mg/dl (70-99); Potassium 4.2 mmol/L (3.5-5.1); Sodium 139 mmol/L (135-145); eGFR > 60.00
[2023-05-30 07:29] VITALS: BP 120/61
[2023-05-30] MEDS: ASPIRIN 325 MG PO ×2 (09:49→21:03)
[2023-05-30] MEDS: COLACE 100 MG PO ×2 (09:50→21:03)
[2023-05-30] MEDS: TOPROL XL 100 MG PO ×2 (09:50→21:07)
[2023-05-30] MEDS: SENOKOT 17.1999999999999993 MG PO ×2 (09:51→21:04)
[2023-05-30] MEDS: OSCAL 500 + D 500 MG PO ×2 (09:52→21:04)
[2023-05-30] MEDS: THERAGRAN 1 TABLET PO (09:52)
[2023-05-30] MEDS: ZESTRIL 20 MG PO ×2 (09:53→21:06)
[2023-05-30] MEDS: IMDUR (EXTENDED RELEASE) 30 MG PO (09:54)
[2023-05-30] MEDS: VITAMIN D3 (cholecalciferol) 25 MCG PO (09:54)
--- NOTE | 2023-05-30 11:24 | W.PN.HOSP.TC ---
Today's Communication/Plan
-
discharge planning for rehab
Assessment / Plan
Assessment / Plan
1.� Left hip intertrochanteric fracture
�� � Mechanical fall
-Patient had mechanical fall causing left hip injury
-X-ray showing nondisplaced intratrochanteric hip fracture
-s/p left intramedullary nailing by ortho service.
-PT/OT will need rehab placement, CM working on it
2. CAD
-[facility] in 2013 showing nonobstructive coronary artery disease -verbal report per patient
-On Imdur daily, continue with hold parameter
-Primary wind operations manager in [place] Dr. Bety Troy
3. Orthostasis episode
- episode while working with PT, SBP dropped to 70s on 05/28
- provided IVF bolus of 250ml on 05/28
- repeat ortho vitals check neg.
4.� Essential hypertension
-Continue lisinopril and Toprol-XL with holding parameters
5.� Tachyarrhythmia
-Reported episodic tachyarrhythmia, patient on Toprol-XL BID
6. HLD
- maintain on statin
7. Acute blood loss anemia from sx
- Hbg stable at 10-11 range, continue monitor
DVT PPX - scd
Full code
Anticipated Discharge: Within 24 hours
Subjective/Interval History
-
Date of Service: May 30, 2023
no complains overnight
Objective Data
-
Labs:
Laboratory Results
05/30/23
05:16
WBC 5.2
Hgb 10.2 L
Hct 30.7 L
Plt Count 164
Sodium 139
Potassium 4.2
Chloride 107
Carbon Dioxide 24
BUN 34 H
Creatinine 0.7
Glucose 104 H
Calcium 9.1
Vital Signs:
Vital Signs
Temp Pulse Resp BP Pulse Ox
98.0 F 75 17 120/61 97
05/30/23 07:29 05/30/23 09:53 05/30/23 07:29 05/30/23 09:53 05/30/23 07:29
I&O
05/29/23 05/30/23 05/31/23
06:59 06:59 06:59
Intake Total 600 / 600 900 / 900 480 / 480
Output Total 350 / 350
Balance 250 / 250 900 / 900 480 / 480
Review of Systems
-
Respiratory: Reports No Symptoms
Cardiac: Reports No Symptoms
Abdomen/GI: Reports No Symptoms
Physical Exam
-
General: Comfortable
HEENT: Oxygen
Respiratory: Clear to Auscultation
Cardiac: Regular Rhythm and S1/S2; Negative Murmur or Rub
Musculoskeletal: No Edema
Skin: Other (left lateral hip dressing in place , no bleeding)
Neuro: Awake, Alert, Oriented, No Motor Deficits and Nonfocal/Grossly Intact
Psych: Calm
[2023-05-30 11:52] VITALS: BP 142/65; BP 146/70; PULSE 86; O2SAT 95
--- NOTE | 2023-05-30 15:22 | CM ---
Resident and provided list of facilities and referrals were made in all scripts.
[2023-05-30 15:43] VITALS: BP 121/64; PULSE 77
[2023-05-30] MEDS: LIPITOR 10 MG PO (17:50)
--- NOTE | 2023-05-30 19:29 | PTCARENOTE ---
pt c/o discoloration to right pinky finger. No pain on flexion or extension. there is a small abrasion at base of finger. May have injured in fall. MM <2sec is cool. Stated I pass on to surgery so they could review in Am. night nurse informed.
[2023-05-30] MEDS: TYLENOL 650 MG PO (21:00)
[2023-05-30 23:15] VITALS: BP 114/50
[2023-05-31] MEDS: TYLENOL PO ×4 (00:58→16:12)
[2023-05-31 07:58] VITALS: BP 145/68
[2023-05-31] MEDS: IMDUR (EXTENDED RELEASE) 30 MG PO (07:59)
[2023-05-31] MEDS: VITAMIN D3 (cholecalciferol) 25 MCG PO (07:59)
[2023-05-31] MEDS: TYLENOL 650 MG PO ×3 (08:00→21:07)
[2023-05-31] MEDS: ASPIRIN 325 MG PO ×2 (08:00→21:06)
[2023-05-31] MEDS: OSCAL 500 + D 500 MG PO ×2 (08:00→21:06)
[2023-05-31] MEDS: COLACE PO (08:00)
[2023-05-31] MEDS: SENOKOT PO (08:00)
[2023-05-31] MEDS: ZESTRIL 20 MG PO ×2 (08:01→21:06)
[2023-05-31] MEDS: THERAGRAN 1 TABLET PO (08:01)
[2023-05-31] MEDS: TOPROL XL 100 MG PO ×2 (08:01→21:06)
[2023-05-31 11:47] VITALS: BP 133/70; PULSE 69; O2SAT 98
--- NOTE | 2023-05-31 13:43 | W.PN.HOSP.TC ---
Today's Communication/Plan
-
dvt ppx- Asa
pending placement
Assessment / Plan
Assessment / Plan
1.� Left hip intertrochanteric fracture
�� � Mechanical fall
-Patient had mechanical fall causing left hip injury
-X-ray showing nondisplaced intratrochanteric hip fracture
-s/p left intramedullary nailing by ortho service.
-PT/OT will need rehab placement, CM working on it
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
-Dressing to remain 7-10 days
-[facility] out 2 weeks (SNF of office)
-If leno out at [facility] outpatient Ortho in 4 weeks
2. CAD
-[facility] in 2013 showing nonobstructive coronary artery disease -verbal report per patient
-On Imdur daily, continue with hold parameter
-Primary supervisory cbp officer in [place] Dr. Bety Troy
3. Orthostasis episode
- episode while working with PT, SBP dropped to 70s on 05/28
- provided IVF bolus of 250ml on 05/28
- repeat ortho vitals check neg.
4.� Essential hypertension
-Continue lisinopril and Toprol-XL with holding parameters
5.� Tachyarrhythmia
-Reported episodic tachyarrhythmia, patient on Toprol-XL BID
6. HLD
- maintain on statin
7. Acute blood loss anemia from sx
- Hbg stable at 10-11 range, continue monitor
DVT PPX - ASA 325mg BID
Full code
DC ready, Medically Clear
Anticipated Discharge: Within 24 hours
Subjective/Interval History
-
Date of Service: May 31, 2023
No acute events overnight
Objective Data
-
Vital Signs:
Vital Signs
Temp Pulse Resp BP Pulse Ox
98.3 F 75 16 145/68 95
02/12/24 07:58 05/31/23 07:58 05/31/23 07:58 05/31/23 07:58 05/31/23 07:58
I&O
05/30/23 05/31/23 06/01/23
06:59 06:59 06:59
Intake Total 900 / 900 1200 / 1200
Balance 900 / 900 1200 / 1200
Review of Systems
-
History Source: Patient
All other systems: Not reviewed unless documented
Physical Exam
-
General: Comfortable
Respiratory: Clear to Auscultation
Cardiac: Regular Rhythm and S1/S2; Negative Murmur or Rub
Musculoskeletal: No Edema
Neuro: Awake, Alert, Oriented, No Motor Deficits and Nonfocal/Grossly Intact
Psych: Calm
Data Reviewed
-
Diagnostic Radiology: Image personally visualized and interpreted and Report Reviewed by me
Labs: Labs Reviewed by me
--- NOTE | 2023-05-31 15:09 | CM ---
Discharge plan of care: SNF. Patient has chosen and been accepted to [facility] for skilled services and rehab. Insurance authorization through [employer] has been initiated and records faxed. ID Reference # [id number], fax #
[phone], .
[2023-05-31] MEDS: LIPITOR 10 MG PO (16:54)
[2023-05-31] MEDS: SENOKOT 17.1999999999999993 MG PO (21:06)
[2023-05-31] MEDS: COLACE 100 MG PO (21:06)
[2023-05-31 23:00] VITALS: BP 145/61
[2023-06-01] MEDS: TYLENOL PO ×4 (00:51→15:07)
[2023-06-01 05:08] LABS: Hematocrit 29.2 % (37.0-47.0); Hemoglobin 9.8 g/dL (12.0-16.0); Mean Corp Hgb Conc. 33.6 g/dL (33.0-37.0); Mean Corpuscular Hgb 32.2 pg (27.0-31.0); Mean Corpuscular Volume 96.1 fL (81.0-99.0); Platelet Count 194 10^3/uL (130-400); Red Blood Cell Count 3.04 10^6/uL (4.20-5.40); Red Cell Dist. Width 12.9 % (11.5-14.5)
[2023-06-01 05:45] LABS: Blood Urea Nitrogen 31 mg/dl (7-17); Carbon Dioxide 24 mmol/L (22-30); Chloride 106 mmol/L (98-107); Estimated Creatinine Clearance 74 ml/min; Glucose 100 mg/dl (70-99); Potassium 4.1 mmol/L (3.5-5.1); Sodium 138 mmol/L (135-145); eGFR > 60.00
[2023-06-01 07:13] VITALS: BP 135/69
[2023-06-01] MEDS: TYLENOL 650 MG PO ×3 (08:09→19:30)
[2023-06-01] MEDS: VITAMIN D3 (cholecalciferol) 25 MCG PO (08:09)
[2023-06-01] MEDS: ASPIRIN 325 MG PO ×2 (08:09→19:29)
[2023-06-01] MEDS: OSCAL 500 + D 500 MG PO ×2 (08:09→19:30)
[2023-06-01] MEDS: IMDUR (EXTENDED RELEASE) 30 MG PO (08:09)
[2023-06-01] MEDS: TOPROL XL 100 MG PO ×2 (08:09→19:30)
[2023-06-01] MEDS: THERAGRAN 1 TABLET PO (08:10)
[2023-06-01] MEDS: SENOKOT PO ×3 (08:10→19:30)
[2023-06-01] MEDS: COLACE PO ×3 (08:10→19:30)
[2023-06-01] MEDS: ZESTRIL 20 MG PO ×2 (08:10→19:31)
[2023-06-01 12:00] VITALS: BP 115/58; PULSE 72; O2SAT 97
--- NOTE | 2023-06-01 13:02 | W.PN.HOSP.TC ---
Today's Communication/Plan
-
medically clear - pending dc
asa 325mg bid
Assessment / Plan
Assessment / Plan
1.� Left hip intertrochanteric fracture
�� � Mechanical fall
-Patient had mechanical fall causing left hip injury
-X-ray showing nondisplaced intratrochanteric hip fracture
-s/p left intramedullary nailing by ortho service.
-PT/OT will need rehab placement, CM working on it
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
-Dressing to remain 7-10 days
-[facility] out 2 weeks (SNF of office)
-If leno out at [facility] outpatient Ortho in 4 weeks
2. CAD
-[facility] in 2013 showing nonobstructive coronary artery disease -verbal report per patient
-On Imdur daily, continue with hold parameter
-Primary information assurance specialist in [place] Dr. Bety Troy
3. Orthostasis episode
- episode while working with PT, SBP dropped to 70s on 05/28
- provided IVF bolus of 250ml on 05/28
- repeat ortho vitals check neg.
4.� Essential hypertension
-Continue lisinopril and Toprol-XL with holding parameters
5.� Tachyarrhythmia
-Reported episodic tachyarrhythmia, patient on Toprol-XL BID
6. HLD
- maintain on statin
7. Acute blood loss anemia from sx
- Hbg stable at 10-11 range, continue monitor
DVT PPX - ASA 325mg BID
Full code
DC ready, Medically Clear
Anticipated Discharge: Within 24 hours
Subjective/Interval History
-
Date of Service: June 01, 2023
no acute events overnight
Objective Data
-
Labs:
Laboratory Results
06/01/23
03:50
WBC 5.0
Hgb 9.8 L
Hct 29.2 L
Plt Count 194
Sodium 138
Potassium 4.1
Chloride 106
Carbon Dioxide 24
BUN 31 H
Creatinine 0.7
Glucose 100 H
Calcium 9.0
Vital Signs:
Vital Signs
Temp Pulse Resp BP Pulse Ox
97.7 F 70 18 135/69 95
06/01/23 07:13 06/01/23 07:13 06/01/23 07:13 06/01/23 07:13 06/01/23 07:13
I&O
05/31/23 06/01/23 06/02/23
06:59 06:59 06:59
Intake Total 1200 / 1200 960 / 960
Balance 1200 / 1200 960 / 960
Review of Systems
-
History Source: Patient
All other systems: Not reviewed unless documented
Physical Exam
-
General: Comfortable
Respiratory: Clear to Auscultation
Cardiac: Regular Rhythm and S1/S2; Negative Murmur or Rub
Musculoskeletal: No Edema
Neuro: Awake, Alert, Oriented, No Motor Deficits and Nonfocal/Grossly Intact
Psych: Calm
Data Reviewed
-
Diagnostic Radiology: Image personally visualized and interpreted and Report Reviewed by me
Labs: Labs Reviewed by me
--- NOTE | 2023-06-01 13:30 | W.PN.ORTHO ---
Today's Communication / Plan
-
Left lower extremity weight-bear as tolerated
PT OT
ASA 325 twice daily x 4 weeks
SCDs
Keep dressing clean and dry. Okay to remove dressing 1 week postop
Follow-up in clinic in 2 weeks postop for staple removal
Patient is still awaiting placement. Case management working to place patient
Please call with any questions
Assessment
.
Dressing:
Clean, dry and intact.
Assessment:
Left intertrochanteric femur fracture status post intramedullary nailing, POD 5
Plan
.
Surgery / Date: Left Hip Gamma nail Jun 12 ([facility])
Activity:
Out of bed.
PT/OT
Subjective
.
.:
Patient seen on rounds earlier today. She resting comfortably in bedside chair. Has been ambulatory with PT. Ambulated 200 feet with walker. Reports pain has improved significantly at the left hip. No new complaints. Case management working on
placement.
Vital Signs and Labs
.
Vital Signs and Labs:
Lab Results
06/01/23 03:50
06/01/23 03:50
Temp Pulse Resp BP Pulse Ox
97.7 F 70 18 135/69 95
06/01/23 07:13 06/01/23 07:13 06/01/23 07:13 06/01/23 07:13 06/01/23 07:13
Physical Exam
-
Exam: Left lower extremity dressing CDI. Minimal tenderness of the left hip. Range of motion of left hip intact with slight discomfort. Painless range of motion of left knee and ankle. TA/EHL/GSC intact motor. Sensation intact at the left lower
extremity grossly. DP 2+.
[2023-06-01 15:17] VITALS: BP 103/61
[2023-06-01] MEDS: LIPITOR 10 MG PO (17:03)
[2023-06-01 23:00] VITALS: BP 130/72
[2023-06-02] MEDS: TYLENOL PO ×2 (00:24→11:53)
[2023-06-02] MEDS: TYLENOL 650 MG PO ×2 (03:19→08:49)
[2023-06-02 07:04] VITALS: BP 153/74
[2023-06-02] MEDS: IMDUR (EXTENDED RELEASE) 30 MG PO (08:48)
[2023-06-02] MEDS: ASPIRIN 325 MG PO (08:48)
[2023-06-02] MEDS: VITAMIN D3 (cholecalciferol) 25 MCG PO (08:48)
[2023-06-02] MEDS: TOPROL XL 100 MG PO (08:49)
[2023-06-02] MEDS: COLACE 100 MG PO (08:49)
[2023-06-02] MEDS: ZESTRIL 20 MG PO (08:49)
[2023-06-02] MEDS: SENOKOT 17.1999999999999993 MG PO (08:49)
[2023-06-02] MEDS: OSCAL 500 + D 500 MG PO (08:49)
[2023-06-02] MEDS: THERAGRAN 1 TABLET PO (08:50)
--- NOTE | 2023-06-02 09:15 | CM ---
Received voice message from Minna at [facility]. Insurance auth has been approved for [facility] for 3 days, 06/01/23 through to and including 06/03/23. LCD and NRD is 06/03/23. Reference # [id number]. Nurse reviewer for follow-up reviews is
Uzma Cherry. Fax # is [phone] and Phone # is [phone].
--- NOTE | 2023-06-02 10:32 | CM ---
Reviewed the chart notes and spoke with the patient at the bedside. IMM signed and placed on the chart. The patient's spouse will transport the patient to [facility] SN[facility] today. CM continues to be available to patient/family and is monitoring medical
plan for needs at discharge.
Plan: Discharge to [facility] today
Call report to: [phone]
Fax report to: [phone]
--- NOTE | 2023-06-02 12:26 | W.PN.HOSP.TC ---
Addendum entered and electronically signed by Toni Black MD 06/03/23 15:36:
[id number]
Original Note:
Today's Communication/Plan
-
-Left lower extremity weight-bear as tolerated
-PT OT
-ASA 325 twice daily x 4 weeks
-SCDs
-Keep dressing clean and dry.� Okay to remove dressing 1 week postop
-Follow-up in ortho clinic in 2 weeks postop for staple removal
-cbc in 1 week
Assessment / Plan
Assessment / Plan
1.� Left hip intertrochanteric fracture
�� � Mechanical fall
-Patient had mechanical fall causing left hip injury
-X-ray showing nondisplaced intratrochanteric hip fracture
-s/p left intramedullary nailing by ortho service.
-Left lower extremity weight-bear as tolerated
-PT OT
-ASA 325 twice daily x 4 weeks
-SCDs
-Keep dressing clean and dry.� Okay to remove dressing 1 week postop
-Follow-up in ortho clinic in 2 weeks postop for staple removal
2. CAD
-[facility] in 2013 showing nonobstructive coronary artery disease -verbal report per patient
-On Imdur daily, continue with hold parameter
-Primary factory assembler in [place] Dr. Bety Troy
3. Orthostasis episode
- episode while working with PT, SBP dropped to 70s on 05/28
- provided IVF bolus of 250ml on 05/28
- repeat ortho vitals check neg.
4.� Essential hypertension
-Continue lisinopril and Toprol-XL with holding parameters
5.� Tachyarrhythmia
-Reported episodic tachyarrhythmia, patient on Toprol-XL BID
6. HLD
- maintain on statin
7. Acute blood loss anemia from sx
- Hbg stable at 10-11 range, continue monitor
-f/u [facility] outpatient
DVT PPX - ASA 325mg BID
Full code
More than 30 minutes spent in discharge including
Final examination of the patient
Summarizing hospital stay
Instructions for continuing care to all relevant caregivers
Preparation of discharge records, prescriptions, and referral forms
Total time spent (35 in minutes):
Anticipated Discharge: Today
Subjective/Interval History
-
Date of Service: June 02, 2023
no acute events
Objective Data
-
Vital Signs:
Vital Signs
Temp Pulse Resp BP Pulse Ox
97.9 F 65 17 153/74 95
06/02/23 07:04 06/02/23 07:04 06/02/23 07:04 06/02/23 07:04 06/02/23 07:04
I&O
06/01/23 06/02/23 06/03/23
06:59 06:59 06:59
Intake Total 960 / 960 720 / 720
Balance 960 / 960 720 / 720
Review of Systems
-
History Source: Patient
All other systems: Not reviewed unless documented
Data Reviewed
-
Diagnostic Radiology: Image personally visualized and interpreted and Report Reviewed by me
Labs: Labs Reviewed by me
--- NOTE | 2023-06-02 12:29 | W.DS.TRANS ---
DC Summary - [employer]
-
Discharge Instructions:
Discharge Diagnosis/Procedures Left intertrochanteric femur fracture status
post intramedullary nailing
Diet Low Cholesterol,Low Fat
Activity Other activity
Additional Activity Left lower extremity weight-bear as tolerated
Blood Work cbc in 1 week
Instructions:
Stand-Alone Forms:
Changes to Home Medications: Yes
Discharge Medications:
DC Medications w/original date entered in [facility]
atorvastatin 10 mg tablet 10 mg PO QPM High Cholesterol 05/26/23
calcium citrate 315 mg calcium-vitamin D3 6.25 mcg (250 unit) tablet 1 tab PO BID Supplement 05/26/23
cholecalciferol (vitamin D3) 25 mcg (1,000 unit) tablet 25 mcg PO DAILY Supplement 05/26/23
isosorbide mononitrate 30 mg tablet,extended release 24 hr 30 mg PO DAILY Heart Disease/Condition 05/26/23
lisinopril 20 mg tablet 20 mg PO BID Blood Pressure 05/26/23
metoprolol succinate 100 mg tablet,extended release 24 hr 100 mg PO BID Heart Failure 05/26/23
therapeutic multivitamin 1 tab PO DAILY Supplement 05/26/23
acetaminophen 325 mg tablet 650 mg PO Q4HWA PRN Pain #60 tabs 06/02/23
aspirin 325 mg tablet 325 mg PO BID 4 weeks #56 tabs 06/02/23
Home Medication Changes
acetaminophen 325 mg tablet 650 mg PO Q4HWA PRN Pain #60 tabs 06/02/23
aspirin 325 mg tablet 325 mg PO BID 4 weeks #56 tabs 06/02/23
Pending Results: No
== END 2023-06-02 14:01 | DRG 481 ==
LOC: 2 SOUTH 18:37
PROVIDERS: ADMITTING PHYSICIAN Hospitalist; ATTENDING PHYSICIAN Internal Medicine; CONSULT PHYSICIAN Orthopaedic Surgery; EMERGENCY PHYSICIAN Emergency Medicine; FAMILY PHYSICIAN Nurse Practitioner Adult Health
PROC: 0QS706Z Reposition Left Upper Femur with Intramedullary Internal Fixation Device, Open Approach (ICD-10-PCS; 2023-05-27)
DX: M80.052A Age-related osteoporosis with current pathological fracture, left femur, initial encounter for fracture (principal); D62 Acute posthemorrhagic anemia; I25.10 Atherosclerotic heart disease of native coronary artery without angina pectoris; I10 Essential (primary) hypertension; E78.00 Pure hypercholesterolemia, unspecified; M76.9 Unspecified enthesopathy, lower limb, excluding foot; S60.511A Abrasion of right hand, initial encounter; M16.0 Bilateral primary osteoarthritis of hip; W10.8XXA Fall (on) (from) other stairs and steps, initial encounter; Y93.89 Activity, other specified; Y92.008 Other place in unspecified non-institutional (private) residence as the place of occurrence of the external cause; Z86.718 Personal history of other venous thrombosis and embolism; Z88.0 Allergy status to penicillin; Z88.2 Allergy status to sulfonamides
CPT/HCPCS: 73502; 73552; 73630; 76000; 80048; 80053; 85025; 85027; 93005; 96374; 96375; 97110; 97116; 97162; 97166; 97530; 97535; 99285; C1713; C1769

== ENCOUNTER → 2023-08-03 15:07 | Outpatient (REF) | payer MEDICARE, SELFPAY | LOC: RAD 15:07 | PROVIDERS: ATTENDING PHYSICIAN Orthopaedic Surgery; FAMILY PHYSICIAN Nurse Practitioner Adult Health | DX: M79.662 Pain in left lower leg (principal) | CPT/HCPCS: 93971 ==

== ENCOUNTER → 2023-08-12 12:00 | Outpatient (REF) | payer MEDICARE, SELFPAY ==
[2023-08-12 16:12] LABS: % Basophils 0.6 % (0-2); % Eosinophils 1.6 % (0-6); % Immature Granulocytes 0.4 % (0-0.5); % Lymphocytes 29.3 % (20.5-51.1); % Monocytes 9.7 % (1.7-9.3); % Neutrophils 58.4 % (42.2-75.2); Absolute Eosinophils 0.1 10^3/uL (0-0.7); Absolute Lymphocytes 1.4 10^3/uL (1.2-3.4); Absolute Monocytes 0.5 10^3/uL (0.1-0.6); Absolute Neutrophils 2.8 10^3/uL (1.4-6.5); Hemoglobin 11.5 g/dL (12.0-16.0); Mean Corp Hgb Conc. 32.9 g/dL (33.0-37.0); Mean Corpuscular Hgb 31.5 pg (27.0-31.0); Mean Corpuscular Volume 95.9 fL (81.0-99.0); Mean Platelet Volume 10.3 fL (7.4-10.4); Nucleated Red Blood Cells % 0 %; Platelet Count 257 10^3/uL (130-400); Red Blood Cell Count 3.65 10^6/uL (4.20-5.40); Red Cell Dist. Width 12.2 % (11.5-14.5); White Blood Cell Count 4.9 10^3/uL (4.8-10.8)
[2023-08-12 16:23] LABS: ALT (SGPT) 14 U/L (0-35); AST (SGOT) 25 U/L (14-36); Albumin 4.1 g/dl (3.5-5.0); Alkaline Phosphatase 81 U/L (38-126); Blood Urea Nitrogen 26 mg/dl (7-17); Calcium 10.2 mg/dl (8.4-10.2); Carbon Dioxide 28 mmol/L (22-30); Chloride 107 mmol/L (98-107); Glucose 90 mg/dl (70-99); Sodium 140 mmol/L (135-145); Total Bilirubin 0.6 mg/dl (0.2-1.3); Total Protein 6.3 g/dl (6.3-8.2); eGFR > 60.00
== END ==
LOC: HWLAB 12:00
PROVIDERS: ATTENDING PHYSICIAN Nurse Practitioner Adult Health
DX: S72.145D Nondisplaced intertrochanteric fracture of left femur, subsequent encounter for closed fracture with routine healing (principal); D50.8 Other iron deficiency anemias; R60.0 Localized edema
CPT/HCPCS: 36415; 80053; 85025

== ENCOUNTER → 2023-10-18 10:21 | Outpatient (REF) | payer MEDICARE, SELFPAY ==
[2023-10-18 11:25] LABS: % Basophils 0.8 % (0-2); % Eosinophils 2.4 % (0-6); % Immature Granulocytes 0.4 % (0-0.5); % Lymphocytes 31.8 % (20.5-51.1); % Neutrophils 55.6 % (42.2-75.2); Absolute Eosinophils 0.1 10^3/uL (0-0.7); Absolute Lymphocytes 1.6 10^3/uL (1.2-3.4); Absolute Monocytes 0.4 10^3/uL (0.1-0.6); Absolute Neutrophils 2.7 10^3/uL (1.4-6.5); Hemoglobin 12.8 g/dL (12.0-16.0); Mean Corp Hgb Conc. 33.7 g/dL (33.0-37.0); Mean Corpuscular Hgb 31.8 pg (27.0-31.0); Mean Corpuscular Volume 94.3 fL (81.0-99.0); Mean Platelet Volume 10.4 fL (7.4-10.4); Nucleated Red Blood Cells % 0 %; Platelet Count 237 10^3/uL (130-400); Red Blood Cell Count 4.03 10^6/uL (4.20-5.40); Red Cell Dist. Width 13.2 % (11.5-14.5); White Blood Cell Count 4.9 10^3/uL (4.8-10.8)
[2023-10-18 11:38] LABS: ALT (SGPT) 20 U/L (0-35); AST (SGOT) 27 U/L (14-36); Albumin 4.4 g/dl (3.5-5.0); Alkaline Phosphatase 76 U/L (38-126); Blood Urea Nitrogen 22 mg/dl (7-17); Calcium 10.4 mg/dl (8.4-10.2); Carbon Dioxide 30 mmol/L (22-30); Chloride 106 mmol/L (98-107); Glucose 94 mg/dl (70-99); HDL Cholesterol 63 mg/dl; LDL Cholesterol, Calculated 92 mg/dl; Potassium 4.2 mmol/L (3.5-5.1); Sodium 141 mmol/L (135-145); Total Bilirubin 1.2 mg/dl (0.2-1.3); Total Cholesterol 189 mg/dl (50-199); Total Protein 6.6 g/dl (6.3-8.2); Triglyceride 172 mg/dl (10-149); Very Low Density Lipoprotein 34 mg/dl (0-30); eGFR > 60.00
== END ==
LOC: HWLAB 10:21
PROVIDERS: ATTENDING PHYSICIAN Nurse Practitioner Adult Health
DX: I82.412 Acute embolism and thrombosis of left femoral vein (principal); E78.00 Pure hypercholesterolemia, unspecified
CPT/HCPCS: 36415; 80053; 80061; 85025

== ENCOUNTER → 2023-10-25 11:24 | Outpatient (REF) | payer MEDICARE, SELFPAY | LOC: HWWDC 11:24 | PROVIDERS: ATTENDING PHYSICIAN Nurse Practitioner Adult Health | DX: Z12.31 Encounter for screening mammogram for malignant neoplasm of breast (principal) | CPT/HCPCS: 77063; 77067 ==

== ENCOUNTER → 2023-11-01 10:38 | Outpatient (REF) | payer MEDICARE, SELFPAY | LOC: RAD 10:38 | PROVIDERS: ATTENDING PHYSICIAN Internal Medicine Hematology & Oncology; FAMILY PHYSICIAN Nurse Practitioner Adult Health | DX: I82.819 Embolism and thrombosis of superficial veins of unspecified lower extremity (principal); R05.2 Subacute cough; Z85.820 Personal history of malignant melanoma of skin | CPT/HCPCS: 93971 ==

== ENCOUNTER → 2023-12-10 13:05 | Outpatient (REF) | payer MEDICARE, SELFPAY ==
[2023-12-10 15:57] LABS: ALT (SGPT) 20 U/L (0-35); AST (SGOT) 29 U/L (14-36); Albumin 4.4 g/dl (3.5-5.0); Alkaline Phosphatase 76 U/L (38-126); Blood Urea Nitrogen 25 mg/dl (7-17); Carbon Dioxide 27 mmol/L (22-30); Chloride 106 mmol/L (98-107); Glucose 80 mg/dl (70-99); Potassium 4.5 mmol/L (3.5-5.1); Sodium 144 mmol/L (135-145); Total Bilirubin 0.8 mg/dl (0.2-1.3); Total Protein 6.6 g/dl (6.3-8.2); eGFR > 60.00
== END ==
LOC: HWLAB 13:05
PROVIDERS: ATTENDING PHYSICIAN Nurse Practitioner Adult Health
DX: E34.9 Endocrine disorder, unspecified (principal)
CPT/HCPCS: 36415; 80053

== ENCOUNTER → 2024-01-28 10:38 | Outpatient (REF) | payer MEDICARE, SELFPAY | LOC: HWLAB 10:38 | PROVIDERS: ATTENDING PHYSICIAN Internal Medicine Hematology & Oncology; FAMILY PHYSICIAN Nurse Practitioner Adult Health | DX: I82.819 Embolism and thrombosis of superficial veins of unspecified lower extremity (principal); R05.2 Subacute cough; Z85.820 Personal history of malignant melanoma of skin | CPT/HCPCS: 36415; 85379 ==

== ENCOUNTER → 2024-02-01 13:21 | Outpatient (REF) | payer MEDICARE, SELFPAY | LOC: RAD 13:21 | PROVIDERS: ATTENDING PHYSICIAN Internal Medicine Hematology & Oncology; FAMILY PHYSICIAN Nurse Practitioner Adult Health | DX: I82.819 Embolism and thrombosis of superficial veins of unspecified lower extremity (principal); R05.2 Subacute cough; Z85.820 Personal history of malignant melanoma of skin | CPT/HCPCS: 93971 ==

== ENCOUNTER → 2024-02-21 11:53 | Outpatient (REF) | payer MEDICARE, SELFPAY ==
[2024-02-21 15:46] LABS: % Basophils 0.8 % (0-2); % Eosinophils 1.9 % (0-6); % Immature Granulocytes 0.2 % (0-0.5); % Monocytes 7.2 % (1.7-9.3); % Neutrophils 57.9 % (42.2-75.2); Absolute Eosinophils 0.1 10^3/uL (0-0.7); Absolute Lymphocytes 1.7 10^3/uL (1.2-3.4); Absolute Monocytes 0.4 10^3/uL (0.1-0.6); Hemoglobin 12.7 g/dL (12.0-16.0); Mean Corp Hgb Conc. 33.4 g/dL (33.0-37.0); Mean Corpuscular Hgb 31.4 pg (27.0-31.0); Mean Corpuscular Volume 94.1 fL (81.0-99.0); Mean Platelet Volume 10.1 fL (7.4-10.4); Nucleated Red Blood Cells % 0 %; Platelet Count 307 10^3/uL (130-400); Red Blood Cell Count 4.04 10^6/uL (4.20-5.40); Red Cell Dist. Width 12.4 % (11.5-14.5); White Blood Cell Count 5.2 10^3/uL (4.8-10.8)
[2024-02-21 15:51] LABS: ALT (SGPT) 20 U/L (0-35); AST (SGOT) 25 U/L (14-36); Albumin 4.5 g/dl (3.5-5.0); Alkaline Phosphatase 66 U/L (38-126); Blood Urea Nitrogen 29 mg/dl (7-17); Calcium 10.6 mg/dl (8.4-10.2); Carbon Dioxide 27 mmol/L (22-30); Chloride 106 mmol/L (98-107); Glucose 97 mg/dl (70-99); HDL Cholesterol 49 mg/dl; LDL Cholesterol, Calculated 88 mg/dl; Potassium 4.4 mmol/L (3.5-5.1); Sodium 142 mmol/L (135-145); Total Bilirubin 0.8 mg/dl (0.2-1.3); Total Cholesterol 177 mg/dl (50-199); Total Protein 6.7 g/dl (6.3-8.2); Triglyceride 202 mg/dl (10-149); Very Low Density Lipoprotein 40 mg/dl (0-30); eGFR > 60.00
[2024-02-22 14:11] LABS: CRP, Highly Sensitive 0.59 mg/L
== END ==
LOC: HWLAB 11:53
PROVIDERS: ATTENDING PHYSICIAN Internal Medicine Cardiovascular Disease; FAMILY PHYSICIAN Nurse Practitioner Adult Health
DX: I25.10 Atherosclerotic heart disease of native coronary artery without angina pectoris (principal); E78.5 Hyperlipidemia, unspecified; I82.402 Acute embolism and thrombosis of unspecified deep veins of left lower extremity; I10 Essential (primary) hypertension; D68.59 Other primary thrombophilia; Z79.01 Long term (current) use of anticoagulants
CPT/HCPCS: 36415; 80053; 80061; 85025; 86141

== ENCOUNTER → 2024-03-04 10:15 | Outpatient (REF) | payer MEDICARE, SELFPAY | LOC: MRI 3T 10:15 | PROVIDERS: ATTENDING PHYSICIAN Student in an Organized Health Care Education/Training Program; FAMILY PHYSICIAN Nurse Practitioner Adult Health | DX: M25.572 Pain in left ankle and joints of left foot (principal) | CPT/HCPCS: 73718; 73721 ==

== ENCOUNTER → 2024-03-30 12:53 | Outpatient (REF) | payer MEDICARE, SELFPAY | LOC: HWRAD 12:53 | PROVIDERS: ATTENDING PHYSICIAN Student in an Organized Health Care Education/Training Program; FAMILY PHYSICIAN Nurse Practitioner Adult Health | DX: I87.2 Venous insufficiency (chronic) (peripheral) (principal) | CPT/HCPCS: 93971 ==

== ENCOUNTER → 2024-06-05 13:27 | Outpatient (REF) | payer MEDICARE, SELFPAY | LOC: RAD 13:27 | PROVIDERS: ATTENDING PHYSICIAN Nurse Practitioner Adult Health | DX: I10 Essential (primary) hypertension (principal); I73.9 Peripheral vascular disease, unspecified; Z86.718 Personal history of other venous thrombosis and embolism; S93.105A Unspecified dislocation of left toe(s), initial encounter | CPT/HCPCS: 93922; 93925 ==

== ENCOUNTER → 2024-06-16 08:40 | Outpatient (REF) | payer MEDICARE, SELFPAY | LOC: HWRAD 08:40 | PROVIDERS: ATTENDING PHYSICIAN Nurse Practitioner Adult Health | DX: Z78.0 Asymptomatic menopausal state (principal) | CPT/HCPCS: 77080 ==

== ENCOUNTER → 2024-07-10 10:15 | Outpatient (REF) | payer MEDICARE, SELFPAY ==
[2024-07-10 17:36] LABS: ALT (SGPT) 20 U/L (0-35); AST (SGOT) 25 U/L (14-36); Albumin 4.1 g/dl (3.5-5.0); Alkaline Phosphatase 75 U/L (38-126); Blood Urea Nitrogen 19 mg/dl (7-17); Calcium 9.9 mg/dl (8.4-10.2); Carbon Dioxide 29 mmol/L (22-30); Chloride 109 mmol/L (98-107); Glucose 91 mg/dl (70-99); HDL Cholesterol 54 mg/dl; Iron 131 ug/dl (37-170); LDL Cholesterol, Calculated 62 mg/dl; Potassium 4.6 mmol/L (3.5-5.1); Sodium 144 mmol/L (135-145); Total Cholesterol 150 mg/dl (50-199); Total Protein 6.3 g/dl (6.3-8.2); Triglyceride 173 mg/dl (10-149); Very Low Density Lipoprotein 34 mg/dl (0-30); eGFR > 60.00
[2024-07-10 17:45] LABS: Percent Saturation 51 % (20-50); Total Iron Binding Capacity 254 ug/dl (265-497)
[2024-07-10 17:48] LABS: Vitamin D, 25-OH*** 49.9 ng/mL (30-80)
[2024-07-10 18:02] LABS: TSH Reflex To Free T4 1.56 uIU/ml (0.47-4.68)
== END ==
LOC: HWLAB 10:15
PROVIDERS: ATTENDING PHYSICIAN Internal Medicine Cardiovascular Disease; FAMILY PHYSICIAN Nurse Practitioner Adult Health
DX: E78.5 Hyperlipidemia, unspecified (principal); I10 Essential (primary) hypertension; E83.52 Hypercalcemia; Z13.29 Encounter for screening for other suspected endocrine disorder; M85.80 Other specified disorders of bone density and structure, unspecified site; E55.9 Vitamin D deficiency, unspecified
CPT/HCPCS: 36415; 80053; 80061; 82306; 83540; 83550; 84443

== ENCOUNTER → 2024-10-02 12:52 | Outpatient (REF) | payer MEDICARE, SELFPAY | LOC: HWRCS 12:52 | PROVIDERS: ATTENDING PHYSICIAN Internal Medicine Cardiovascular Disease; FAMILY PHYSICIAN Nurse Practitioner Adult Health | DX: I35.1 Nonrheumatic aortic (valve) insufficiency (principal) | CPT/HCPCS: 93306 ==

== ENCOUNTER → 2024-10-25 11:27 | Outpatient (REF) | payer MEDICARE, SELFPAY | LOC: HWWDC 11:27 | PROVIDERS: ATTENDING PHYSICIAN Nurse Practitioner Adult Health | DX: Z12.31 Encounter for screening mammogram for malignant neoplasm of breast (principal) | CPT/HCPCS: 77063; 77067 ==

== ENCOUNTER → 2024-12-29 10:43 | Outpatient (REF) | payer MEDICARE, SELFPAY ==
[2024-12-29 13:10] LABS: ALT (SGPT) 20 U/L (0-35); AST (SGOT) 23 U/L (14-36); Albumin 4.4 g/dl (3.5-5.0); Alkaline Phosphatase 61 U/L (38-126); Blood Urea Nitrogen 24 mg/dl (7-17); Calcium 10.3 mg/dl (8.4-10.2); Carbon Dioxide 30 mmol/L (22-30); Chloride 105 mmol/L (98-107); Glucose 85 mg/dl (70-99); Potassium 4.1 mmol/L (3.5-5.1); Sodium 142 mmol/L (135-145); Total Protein 6.5 g/dl (6.3-8.2); eGFR 58.75
== END ==
LOC: HWLAB 10:43
PROVIDERS: ATTENDING PHYSICIAN Nurse Practitioner Adult Health
DX: I10 Essential (primary) hypertension (principal)
CPT/HCPCS: 36415; 80053

== ENCOUNTER → 2025-04-17 13:07 | Outpatient (REF) | payer MEDICARE, SELFPAY ==
[2025-04-17 15:59] LABS: Hematocrit 39.7 % (37.0-47.0); Hemoglobin 13.1 g/dL (12.0-16.0); Mean Corp Hgb Conc. 33.0 g/dL (33.0-37.0); Mean Corpuscular Volume 98.3 fL (81.0-99.0); Nucleated Red Blood Cells % 0 %; Platelet Count 258 10^3/uL (130-400); Red Cell Dist. Width 12.2 % (11.5-14.5)
[2025-04-17 16:06] LABS: ALT (SGPT) 20 U/L (0-35); AST (SGOT) 24 U/L (14-36); Albumin 4.5 g/dl (3.5-5.0); Alkaline Phosphatase 69 U/L (38-126); Blood Urea Nitrogen 27 mg/dl (7-17); Calcium 10.2 mg/dl (8.4-10.2); Carbon Dioxide 29 mmol/L (22-30); Chloride 105 mmol/L (98-107); Glucose 94 mg/dl (70-99); HDL Cholesterol 55 mg/dl; Iron 122 ug/dl (37-170); LDL Cholesterol, Calculated 77 mg/dl; Potassium 4.1 mmol/L (3.5-5.1); Sodium 139 mmol/L (135-145); Total Protein 7.1 g/dl (6.3-8.2); Very Low Density Lipoprotein 37 mg/dl (0-30); eGFR 58.39
[2025-04-17 16:15] LABS: Total Iron Binding Capacity 254 ug/dl (265-497)
[2025-04-17 16:22] LABS: Vitamin D, 25-OH*** 52.4 ng/mL (30-80)
== END ==
LOC: HWLAB 13:07
PROVIDERS: ATTENDING PHYSICIAN Nurse Practitioner Adult Health
DX: E78.00 Pure hypercholesterolemia, unspecified (principal); I10 Essential (primary) hypertension; E55.9 Vitamin D deficiency, unspecified; D50.8 Other iron deficiency anemias; Z13.29 Encounter for screening for other suspected endocrine disorder
CPT/HCPCS: 36415; 80053; 80061; 82306; 83540; 83550; 84443; 85025